=== PATIENT | male | born 2000 | race Hispanic/Latino ===

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

== ENCOUNTER 2021-02-27 19:19 | Emergency (ER) | payer OTHER | END 2021-02-27 23:02 | disposition left against medical advice (07) | LOC: ERS 19:19 | DX: Z53.21 Procedure and treatment not carried out due to patient leaving prior to being seen by health care provider (principal) ==

== ENCOUNTER 2023-02-02 14:00 | Emergency (ER) | payer OTHER, SELFPAY | END 2023-02-02 16:25 | disposition home or self-care (01) | LOC: ERS 14:00 | DX: S62.511A Displaced fracture of proximal phalanx of right thumb, initial encounter for closed fracture (principal); W23.1XXA Caught, crushed, jammed, or pinched between stationary objects, initial encounter | CPT/HCPCS: 26725 ==